=== PATIENT | male | born 1980 | race Caucasian/White ===

== ENCOUNTER → 2016-08-17 | Outpatient (CLI) | payer BC ==
[~2016-08-17] MED LIST: ALBU1AER9 INH; AMIT25TA9 PO; ASPI81TA28 PO; ATOR-26 PO; BECL0.3A INH; FEXO1TAB49 PO; FLUT0.0529 NAE; INSDGI SQ; METF-384 PO; OXYCODONE PO; PANT40TA PO; ROPI0.25 PO; WLLSR/150 PO
--- NOTE | 2016-08-17 12:58 | DIAGNOSTIC IMAGING REPORT ---
TWO VIEW CHEST CLINICAL HISTORY: Cough and fever. FINDINGS: PA and lateral chest radiographs are obtained. No prior studies are available for comparison at the time of dictation. The cardiomediastinal silhouette is unremarkable. The lungs and pleural spaces are clear. There is no pneumothorax. The bony thorax appears intact. IMPRESSION: No active disease in the chest. Electronically signed by: Jonathan Segovia M.D. 08/17/2016 12:56 PM Dictated Date/Time: 08/17/2016 12:56 PM
== END | disposition home or self-care (01) ==
LOC: C.RAD1850 12:30
PROVIDERS: ATTEND Family Medicine
DX: R05 Cough (principal)

== ENCOUNTER → 2017-04-09 | Outpatient (CLI) | payer BC ==
--- NOTE | 2017-04-09 09:46 | DIAGNOSTIC IMAGING REPORT ---
LEFT UPPER EXT JOINT WITHOUT CLINICAL HISTORY: 37 years-old Male presenting with left shoulder pain without a specific injury, chronic. TECHNIQUE: Multisequence, multiplanar MR imaging of the left shoulder was performed without the use of intravenous contrast. IV contrast: None. COMPARISON: Correlation made to plain radiographs of the left shoulder from 2016. FINDINGS: Localizer images: Unremarkable. Minimal bony edema noted at the acromioclavicular joints, which demonstrates degenerative changes. The acromion has a concave undersurface (type I). Mild superior subluxation of the humeral head with mild resulting narrowing of the acromiohumeral interval, suggesting chronic impingement. No additional bony edema is evident. Articular cartilage grossly preserved. Irregular T2 hyperintense linear defect in the superior labrum involving the biceps labral complex and extending from 10:00 to 12:00 (superior posterior). Irregularity of the posterior labrum could suggest degenerative change. Glenohumeral ligaments intact. Evidence of a full-thickness tear of the insertional fibers of the supraspinatus with 7 mm of retraction of fibers focally. This is not a complete tear of the tendon however. Additionally, articular surface tear of the insertional fibers and critical zone of the infraspinatus. Teres minor tendon intact. Minimal increased signal intensity within the subscapularis tendon proximal to the transverse ligament likely indicates tendinosis. The long head of the biceps remains well seated within the intertubercular groove. Short head of the biceps tendon intact. Normal muscle bulk. No evidence of fatty atrophy. No large joint effusion. IMPRESSION: 1. Superior posterior labral tear extending from 10:00 to 12:00 with involvement of the biceps labral complex. No detachment of the long head of the biceps. 2. Full-thickness tear of the supraspinatus with 7 mm of focal fiber retraction, although this is not a complete tendon tear. 3. Articular surface tear of the insertional fibers and critical zone of the infraspinatus. 4. Subscapularis tendinopathy. 5. Mild superior subluxation of the humeral head suggest chronic impingement. 6. Degenerative changes at the acromioclavicular joint. Electronically signed by: Oliver Miner M.D. 04/09/2017 9:44 AM Dictated Date/Time: 04/09/2017 9:36 AM
== END | disposition home or self-care (01) ==
LOC: C.MRI 08:43
PROVIDERS: ATTEND Physical Medicine & Rehabilitation Sports Medicine
DX: S43.492A Other sprain of left shoulder joint, initial encounter (principal); M75.112 Incomplete rotator cuff tear or rupture of left shoulder, not specified as traumatic; M75.82 Other shoulder lesions, left shoulder; M19.012 Primary osteoarthritis, left shoulder; X58.XXXA Exposure to other specified factors, initial encounter

== ENCOUNTER → 2017-12-02 | Outpatient (CLI) | payer OTHER ==
[~2017-12-02] MED LIST changes: -ALBU1AER9 INH; -AMIT25TA9 PO; -BECL0.3A INH; +BENZ1CAP90 PO; -FLUT0.0529 NAE; +NVLG SC; +OXYC1TAB3 PO; -OXYCODONE PO; +QVRINH80 INH; -ROPI0.25 PO; +VNTHFA/IN INH; -WLLSR/150 PO
--- NOTE | 2017-12-03 10:24 | PULMONARY FUNCTION TEST ---
Spirogram and flow-volume loops are within the limits of normal.
== END | disposition home or self-care (01) ==
LOC: C.RC 12:26
PROVIDERS: ATTEND Student in an Organized Health Care Education/Training Program
DX: J45.41 Moderate persistent asthma with (acute) exacerbation (principal); J45.998 Other asthma